=== PATIENT | female | born 1960 | race Caucasian/White ===

== ENCOUNTER 2019-10-03 14:22 | Emergency (ER) | payer MEDICAID ==
[~2019-10-03] VITALS: Ht 162.6 cm; Wt 90.7 kg
[2019-10-03 14:24] VITALS: BP_SYST 114
--- NOTE | 2019-10-03 14:25 | NUR ---
Patient to ER bed 6 to gown for evaluation. Side rails up.
--- NOTE | 2019-10-03 14:30 | NUR ---
Patient presented to ER C/O flu-like symptoms . Patient A&Ox4, ambulatory to ER, afebrile, skin pink and warm, pain 3/ , denies N/V/D. Patient states she has productive cough, sorethroat & body aches x3 days
--- NOTE | 2019-10-03 14:35 | NUR ---
HARRY Wyatt at bedside examining patient.
[2019-10-03 15:42] VITALS: BP_SYST 118
--- NOTE | 2019-10-03 15:42 | NUR ---
Patient given written and verbal discharge instructions and verbalizes understanding. ER MD discussed with patient the results and treatment provided. Patient in stable condition. ID arm band removed. Rx of Albuterol Sulfate given. Opportunity for questions provided and answered. Medication side effect fact sheet provided.
== END 2019-10-03 15:42 | disposition home or self-care (01) ==
LOC: SED 14:22
DX: R05 Cough (principal); R06.02 Shortness of breath; E11.9 Type 2 diabetes mellitus without complications; Z90.49 Acquired absence of other specified parts of digestive tract
CPT/HCPCS: 36415; 86710; 99283